=== PATIENT | female | born 1945 | race Caucasian/White ===

== ENCOUNTER 2018-04-22 14:10 | Emergency (ER) | payer BC, OTHER, MEDICARE ==
[~2018-04-22] VITALS: Ht 167.6 cm; Wt 61.2 kg
[2018-04-22 14:19] VITALS: BP 130/80
== END 2018-04-22 15:50 | disposition home or self-care (01) ==
LOC: ER 14:15
DX: S30.0XXA Contusion of lower back and pelvis, initial encounter (principal); W18.09XA Striking against other object with subsequent fall, initial encounter; Y93.01 Activity, walking, marching and hiking; Y92.59 Other trade areas as the place of occurrence of the external cause; Y99.8 Other external cause status
CPT/HCPCS: 72220-TC; A4606; Z7610